=== PATIENT | female | born 1975 | race Hispanic/Latino ===

== ENCOUNTER 2023-08-21 05:06 | Emergency (ER) | payer MEDICARE ==
[~2023-08-21] VITALS: Ht 160 cm; Wt 83.0 kg
[2023-08-21] VITALS (9 sets, daily range): BP systolic 110–134; BP diastolic 62–110
[2023-08-21] MEDS ORDERED: KETOROLAC TROMETHAMINE 30 MG/ML SDV IM ONE (05:15)
[2023-08-21] MEDS ORDERED: Acetaminophen 300 MG/Codeine 30 MG/COMBO PO ONE (05:15)
[2023-08-21] MEDS ORDERED: VOLTAREN - GENE75 MG PO (06:35)
== END 2023-08-21 07:04 | disposition home or self-care (01) ==
LOC: ED 05:06
DX: S83.92XA Sprain of unspecified site of left knee, initial encounter (principal); S63.602A Unspecified sprain of left thumb, initial encounter; V17.0XXA Pedal cycle driver injured in collision with fixed or stationary object in nontraffic accident, initial encounter; Y93.55 Activity, bike riding; Y92.410 Unspecified street and highway as the place of occurrence of the external cause

== ENCOUNTER 2024-02-16 00:03 | Emergency (ER) | payer MEDICARE ==
[~2024-02-16] VITALS: Ht 160 cm; Wt 84.0 kg
[~2024-02-16 00:03] MED LIST: VOLTAREN - GENE75 MG PO
[2024-02-16] MEDS ORDERED: BENZONATATE 200 MG/CAP PO ONE (00:40)
[2024-02-16] MEDS ORDERED: DEXAMETHASONE 2 MG/TAB TAB PO ONE (00:45)
[2024-02-16] MEDS ORDERED: DECADRON4 MG PO (02:59)
[2024-02-16] MEDS ORDERED: BENZONATATE200 MG PO (02:59)
[2024-02-16 03:19] VITALS: BP 104/71
== END 2024-02-16 03:19 | disposition home or self-care (01) ==
LOC: ED 00:03
DX: J00 Acute nasopharyngitis [common cold] (principal); B97.29 Other coronavirus as the cause of diseases classified elsewhere; Z86.16 Personal history of COVID-19; Z20.822 Contact with and (suspected) exposure to COVID-19